=== PATIENT | female | born 1950 | race Caucasian/White ===

== ENCOUNTER 2024-10-24 13:30 | Outpatient (CLI) | payer MEDICARE, SELFPAY ==
--- NOTE | ~2024-10-24 | MR_ITS ---
MRI of the lumbar spine Clinical History: T11 fracture Technique: Axial T2-weighted images, and sagittal T1-weighted, T2-weighted, and T2 fat-sat images wer e acquired. Findings: There is severe T11 compression fracture, which appears to be chronic, without significant marrow edema. There is an acute severe L1 compression fracture with severe loss of height and marrow edema. There is acute mild L2 compression fracture, possibly, particularly at the inferior endplate r egion, again with marrow edema present. No subluxation evident. At L1-L2, there is minimal disc bulge with mild facet arthropathy. No central canal stenosis or defin ite neural foraminal narrowing. At L2-L3, there is minimal disc bulge with moderate to advanced facet arthropathy. There is minimal c entral canal stenosis. Neural foramina are preserved. At L3-L4, there is disc bulge with moderate to advanced facet arthropathy. There is moderate central canal stenosis. There is minimal right neural foraminal narrowing. Left neural foramen preserved. At L4-L5, there is severe degenerative disc narrowing. There is disc bulge with severe facet arthropa thy. There is mild central canal stenosis. There is mild bilateral neural foraminal narrowing. At L5-S1, there is severe degenerative disc narrowing. There is mild disc bulge with moderate to adva nced facet arthropathy. No central canal stenosis. There is severe left neural foraminal narrowing. T here is minimal right neural foraminal narrowing. Paravertebral soft tissues are unremarkable. Impression: Acute compression fractures of L1 and L2, as detailed above. Chronic compression fracture of T11, as detailed above. Moderate to advanced degenerative spondylosis throughout the lumbar spine. Reviewed, dictated and finalized at [facility]. Impression: Acute compression fractures of L1 and L2, as detailed above. Chronic compression fracture of T11, as detailed above. Moderate to advanced degenerative spondylosis throughout the lumbar spine.
--- OUTSIDE RECORDS SUMMARY | 2024-10-24 13:45 | XMS_ITS | Encounter Summary ---
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 Name Role Phone Shalonda Rico MD Primary Care Provider [phone] Reason for Visit * Reason Onset Date Comments Additional Services Or Orders 10/01/2024 Encounter Details Date Type Department Care Team (Late st Contact Info) Description 10/01/2024 Telephone [facility] Family Medicine [address] [place] [address] [place] [phone] Shalonda Rico MD [address] [place] [phone] Additional Services Or Orders Social History Tobacco Use Types Packs/Day Years Used Date Smoking Tobacco: Former Cigarettes Q uit: 2020 Cigars Quit: 2020 Smokeless Tobacco: Never [facility] Utilities Answer Date Recorded In the past 12 months has [employer], gas, oil, or water [employer] threatened to shut off services in your home? No 05/06/2024 Social Connection and Isolation Panel [NHANES] A nswer Date Recorded In a typical week, how many times do you talk on the phone with family, friends, or neighbors? Twice a week 05/06/2024 How often do you get together with friends or re latives? Twice a week 05/06/2024 How often do you attend taoist or mormonism serv ices? Never 05/06/2024 Do you belong to any clubs o r organizations such as taoist groups, unions, fraternal or athletic groups, or school groups? No 05/06/2024 How often do you attend meet ings of the clubs or organizations you belong to? Never 05/06/2024 Are you , , di vorced, , never , or living with a partner? 05/06/2024 AUDIT-C Answer Date Recorded Q1: How often do you have a drink containing alcohol? 4 or more times a week 02/08/2024 Q2: How many drinks containi ng alcohol do you have on a typical day when you are drinking? 1 or 2 Q3: How often do you have si x or more drinks on one occasion? Never 02/08/2024 Overall Financial Resource Strain (CARDIA) Answe r Date Recorded How hard is it for you to pa y for the very basics like food, housing, medical care, and heating? Not hard at all 05/06/2024 PHQ-2 Answer Date Recorded PHQ-2 Total Score (If total score is 3 or more points, staff should administer the PHQ-9) 0 09/15/2023 Hunger Vital Sign Answer Date Recorded Within the past 12 months, y ou worried that your food would run out before you got the money to buy more. Never true 05/06/20 24 Within the past 12 months, t he food you bought just didn't last and you didn't have money to get more. Never true 05/06/2024 PRAPARE - Transportation Answer Date Re corded In the past 12 months, has l ack of transportation kept you from medical appointments or from getting medications? No 04/12 In the past 12 months, has l ack of transportation kept you from meetings, work, or from getting things needed for daily living? No 05/06/2024 Housing Stability Vital Sign Answer Sergio e Recorded In the last 12 months, was t here a time when you were not able to pay the mortgage or rent on time? No 05/06/2024 In the past 12 months, how m any times have you moved where you were living? 0 05/06/2024 At any time in the past 12 m [facility], were you homeless or living in a group home (including now)? No 05/06/2024 Personal Safety Answer Date Recorded Have you ever been in or are you currently in a harmful physical or emotional relationship or is someone making you feel afraid or unsafe? Denies 05/04/2024 Comments Unknown Sex and Gender Information Value Date Recorded Sex Assigned at Not on file Legal Sex Female 8:18 AM CDT Gender Identity Female 05/04/2024 11:00 PM DRAWER IN Sexual Orientation Not on file documented as of this encounter Miscellaneous Notes * Telephone Encounter - Sheree Slater - 10/01/2024 2:00 PM CDT Call Back Caller???s Concern: Patient called back. Relayed message from the nurse. Does message need to be routed? No * Telephone Encounter - Davian Patel - 10/01/2024 11:55 AM CDT Called pt to inform mri order has been faxed and to let us know when scheduled;pt [email or web address]/a.lvm * Telephone Encounter - Savi Esquivel - 10/01/2024 11:52 AM CDT Can you contact patient and make aware order has been faxed and to make office aware once scheduled * Telephone Encounter - Kesha Munguia - 10/01/2024 10:53 AM CDT Medical Question/Miscellaneous Caller???s Concern: Patient would like MRI order faxed over to [facility] Fax number [phone] Please reach out to patient once sent Does message need to be routed? Yes-Action Needed documented in this encounter Plan of Treatment Not on file documented as of this encounter Visit Diagnoses Not on filedocumented in this encounter Care Teams Arc Welding Machine Operator Relationship Specialty Start Date End Date Shalonda Rico MD PCP - General Family Medicine 11/18/23 documented as of this encounter
--- OUTSIDE RECORDS SUMMARY | 2024-10-24 13:45 | XMS_ITS | Referral Summary ---
Author Organization [facility] Address [address] [place] [address] Care Team Providers Care Cross Tie Maker Name Role Phone Shalonda Rico MD Primary Care Provider [phone] Encounters Date Type Department Care Team Description 10/12/[address] [place] [address] Shalonda Rico MD Medical Question/Miscellaneous 10/01/[address] [place] [address] Shalonda Rico MD Additional Services Or Orders 09/30/2024 3:30 PM CDT Office Visit [address] [place] [address] Dora Lorenzana NP Compression fracture of T11 vertebra, initial encounter (HCC) (Primary Dx); Closed displaced intertrochanteric fracture of right femur with routine healing, subsequent encounter; Hypertension, essential 09/27/[address] [place] [address] Shalonda Rico MD Additional Services Or Orders; Symptom Based Call 09/27/2024 1:45 PM CDT Office Visit [facility] Pulmonology [address] [place] [address] [address] [place] [address] Andree Hunt MD Chronic obstructive pulmonary disease, unspecified COPD type (HCC) (Primary Dx); Chronic rhinitis; Cigarette nicotine dependence in remission; Pulmonary nodules 09/22/[address] [place] [address] Shalonda Rico MD Med Refill 09/14/[address] [place] [address] Shalonda Rico MD Referral Request 09/14/2024 4:47 PM CDT - 09/14/2024 11:59 PM CDT Hospital Encounter [facility] [address] [place] [address] Pulmonary nodules Discharge Disposition: Discharge to home or self care 08/11/[address] [address] Shalonda Rico MD Ortho Referral- 2nd opinion- Declined 08/05/2024 3:00 PM CDT Office Visit [address] [id number] Dora Lorenzana NP Bursitis of right elbow, unspecified bursa (Primary Dx); Hypertension, essential; Vitamin D deficiency; Chronic obstructive pulmonary disease, unspecified COPD type (HCC); Mixed hyperlipidemia; Hyponatremia; Generalized anxiety disorder 08/04/2024 11:14 AM CDT - 08/04/2024 11:59 PM CDT Hospital Encounter [facility] [address] [place] [address] Olecranon bursitis of right elbow Discharge Disposition: Discharge to home or self care 08/04/2024 11:15 AM CDT Office Visit [facility] Hand Surgery [address] [place] [address] [address] [place] [address] Herminio Bruce MD Olecranon bursitis of right elbow (Primary Dx) 07/26/2024 Telephone [facility] [address] [facility] [address] [place] [address] Herminio Bruce MD 07/26/2024 Telephone [facility] Hand [facility] [address] [place] [address] Herminio Bruce MD from Last 3 Months Allergies No known active allergies Medications albuterol HFA (PROVENTIL HFA,VENTOLIN HFA,PROAIR HFA) 90 mcg/actuation inhalerIndicat ions:Chronic obstructive pulmonary disease, unspecified COPD type (HCC) INHALE 2 PUFFS EVERY 4 HOURS NEEDED FOR WHEEZING OR SHORTNESS OF BREATH 6.7 each 3 01/28/20 23 Active ergocalciferol (VITAMIN D) 50,000 unit capsuleIndicat ions:Vitamin D deficiency Take 1 capsule (50,000 Units total) by mouth once a week 12 capsule 2 02/13/20 24 Active rosuvastatin (CRESTOR) 5 mg tablet Take 1 tablet (5 mg total) by mouth once a week 4 tablet 3 05/11/20 24 Active acetaminophen (TYLENOL) 325 mg tabletIndicati ons:Arthritic Pain,Fever,Hea dache Disorder,Myalg ia,Pain Take 2 tablets (650 mg total) by mouth 3 (three) times a day 30 tablet 1 05/11/20 24 Active bisacodyl EC (DULCOLAX EC) 5 mg EC tabletIndicati ons:constipati on Take 2 tablets (10 mg total) by mouth daily as needed for constipation 05/11/20 24 Active cyanocobalamin (Vitamin B-12) 1,000 mcg tabletIndicati ons:B12 deficiency Take 1 tablet (1,000 mcg total) by mouth daily 05/11/20 24 Active mineral oil (FLEET MINERAL OIL) enemaIndicatio ns:constipatio n Insert 1 enema (133 mL total) into the rectum every third day as needed for constipation (Constipation) 05/11/20 24 Active mirtazapine (REMERON) 15 mg tabletIndicati ons:Anxiety and depression Take 1 tablet (15 mg total) by mouth nightly 30 tablet 3 05/11/20 24 Active Additional Information Patient not taking.Reported on 09/30/2024 ibandronate (BONIVA) 150 mg tablet PLEASE SEE ATTACHED FOR DETAILED DIRECTIONS 07/02/19 25 Active metoprolol XL (TOPROL-XL) 25 mg extended release tabletIndicati ons:Hypertensi on, essential Take 2 tablets (50 mg total) by mouth daily 180 tablet 3 07/08/19 25 026 Active ALPRAZolam (XANAX) 0.5 mg tabletIndicati ons:Generalize d anxiety disorder Take 1 tablet (0.5 mg total) by mouth nightly as needed for anxiety 30 tablet 08/06/19 25 Active Trelegy Ellipta 100-62.5-25 mcg inhaler INHALE 1 PUFF DAILY RINSE MOUTH WITH WATER AFTER USE, DON'T SWALLOW. APPOINTMENT NEEDED 60 each 5 09/22/19 25 Active lisinopriL (PRINIVIL,ZEST RIL) 10 mg tablet TAKE 1 TABLET BY MOUTH EVERY DAY 100 tablet 1 09/26/19 25 Active lisinopriL (PRINIVIL,ZEST RIL) 10 mg tablet TAKE 1 TABLET BY MOUTH EVERY DAY 90 tablet 07/05/19 25 025 Discontinued HYDROcodone-ac etaminophen (NORCO) 5-325 mg per tabletIndicati ons:Pain Take 1 tablet by mouth every 6 (six) hours as needed for pain for up to 7 days 28 tablet 10/01/19 25 025 Active Problems Problem Noted Date Diagnosed Date Olecranon bursitis of right elbow 08/04/2024 Transition of care 06/03/2024 Assessment & Plan (06/03/2024 12:07 PM JEEP DRIVER): Patient is status post right femur fracture Follow up with Dr. Ojeda regarding right femur fracture and physical therapy. Acute postoperative pain of right hip 05/08/2024 Acute postoperative anemia due to expected blood loss 05/08/2024 Nocturnal hypoxemia 05/08/2024 Acute renal failure 05/08/2024 Moderate protein-calorie malnutrition 05/06/2024 Closed displaced intertrochanteric fracture of r ight femur 05/05/2024 Assessment & Plan (06/03/2024 12:07 PM JEEP DRIVER): Patient to continue medications as before hospitalization. Patient to continue with physical therapy in home. She states they are coming twice a week for 3 weeks. She has 2 weeks left. Patient states she is having more difficulty with constipation. Patient is already taking bisacodyl, MiraLax, occasional enemas, and fibrous foods. Patient does have samples at [facility] at home that she is willing to try. Patient states she is still having some pain and would like a refill on the oxycodone. Refill sent. Patient to follow up with Dr. Ojeda for the surgery. Office number given to patient during appointment. Vitamin D deficiency 02/13/2024 Assessment & Plan (08/05/2024 4:01 PM CDT): Chronic Uncontrolled Vitamin-D was drawn in the hospital and it was at 8. New labs ordered advised patient to take supplements. Compression fracture of T11 vertebra, initial en counter 02/08/2024 Other constipation 02/08/2024 Heavy alcohol use 02/08/2024 Hyponatremia 02/08/2024 Encounter for Medicare annual wellness exam 10/2023 Age-related osteoporosis wit hout current pathological fracture 06/16/2023 Assessment & Plan (06/16/2023 2:08 PM JEEP DRIVER): New Start caclcium and boniva Claudication of both lower extremities Bilateral cold feet 06/16/2023 Vertigo 02/20/2023 Assessment & Plan (03/21/2023 6:10 AM JEEP DRIVER): New Order meclizine Order PT Order CT head, echo, carotid ultrasounds Neck pain 02/20/2023 Assessment & Plan (03/21/2023 6:10 AM JEEP DRIVER): New Order cervical xray Order PT Well adult exam 02/20/2023 Chronic idiopathic constipation 10/03/2022 Assessment & Plan (10/03/2022 2:04 PM CDT): Chronic constipation, worsening since February of 2022. Bentyl and stool softeners seem to help. -high-fiber diet -we will give [employer] samples and prescribe [employer] 145 mcg p.o. daily -continue stool softeners; if [employer] not covered recommend MiraLax OTC daily Renal cyst, right 08/21/2022 Assessment & Plan (08/30/2022 1:36 AM CDT): Order MRI right renal Chronic bilateral low back pain without sciatica 08/21/2022 Assessment & Plan (08/30/2022 1:36 AM CDT): Chronic Refer to chiropractor Mixed hyperlipidemia 06/20/2022 Assessment & Plan (06/16/2023 2:09 PM JEEP DRIVER): Chronic Uncontrolled Start crestro 5mg 2 days/week Goal: TC<200, LDL<100, TG<150 Assessment & Plan (03/21/2023 6:09 AM JEEP DRIVER): Chronic stable ffollow low cholesterol diet Goal: TC<200, LDL<100, TG<150 Assessment & Plan (06/28/2022 3:27 AM JEEP DRIVER): Chronic ffollow low cholesterol diet Goal: TC<200, LDL<100, TG<150 Pulmonary nodules 06/20/2022 Assessment & Plan (06/28/2022 3:29 AM JEEP DRIVER): Chronic Follow with ct chest Post-menopausal 06/20/2022 Periumbilical abdominal pain 06/20/2022 Assessment & Plan (06/28/2022 3:28 AM JEEP DRIVER): New Order labs Order CT abd/pelvis Refer to GI Epigastric abdominal pain 06/20/2022 Assessment & Plan (10/03/2022 2:02 PM CDT): Epigastric discomfort after meals, associated with bloating. Denies any nausea or vomiting. Labs ordered by PCP June 2022 with normal LFTs, normal lipase, normal CBC, and normal TSH. CT of the abdomen and pelvis with contrast August 2022 with no acute abnormalities, uncomplicated colonic diverticulosis, indeterminate right renal lesion, tiny hypodensities in the liver too small to characterize but likely cysts, and emphysema with pulmonary nodules. -avoid NSAIDS -noted plans for MRI by PCP to evaluate kidney lesion -schedule EGD -The risks (risks of bleeding, infection, perforation requiring surgery, missed polyps/cancer, dental injury, aspiration pneumonia, anesthesia complications such as drug reaction and cardiopulmonary complications including rare chance of ), benefits, and alternatives of the planned procedure were explained to the patient who understands and consents to having procedure done. Assessment & Plan (06/28/2022 3:28 AM JEEP DRIVER): New Order labs Order CT abd/pelvis Refer to GI Abdominal bloating 06/20/2022 Assessment & Plan (10/03/2022 2:02 PM CDT): See above Assessment & Plan (08/30/2022 1:35 AM CDT): Chronic Likely IBS Will start bentyl Assessment & Plan (06/28/2022 3:28 AM JEEP DRIVER): New Order labs Order CT abd/pelvis Refer to GI Change in bowel habits 06/20/2022 Assessment & Plan (10/03/2022 2:04 PM CDT): Chronic constipation, worsening since February 2022. Patient went to urgent care and told she had an impaction, improved with enemas. Last colonoscopy by Dr. Cheng in April of 2018 incomplete to the hepatic flexure, left-sided diverticulosis. -discuss colonoscopy for further evaluation including alternatives such as CT colonography or barium enema; patient states she had a bad experience with the last colonoscopy and does not desire another colonoscopy or alternatives understanding the risk of missed colon cancer Assessment & Plan (06/28/2022 3:28 AM JEEP DRIVER): New Order labs Order CT abd/pelvis Refer to GI Hypertension, essential 06/20/2022 Assessment & Plan (08/05/2024 4:00 PM CDT): Chronic Stable Tolerating metoprolol 25 mg p.o. and lisinopril 10 mg p.o. both in the late afternoon. Goal: SBP<140, DBP<90 Follow up in September Assessment & Plan (07/08/2024 3:45 PM JEEP DRIVER): Chronic Not stable at home during patient's check Advised patient to take metoprolol to 25 mg daily and take in the morning and continue with the lisinopril 10 mg daily but take at bedtime. Patient to record blood pressure readings b.i.d. for the next 4 weeks Follow up in 4 weeks. Goal: SBP<140, DBP<90 Assessment & Plan (03/25/2024 2:47 PM JEEP DRIVER): Chronic Not stable Currently taking metoprolol 50 mg daily and lisinopril 10 mg daily. Advised patient to decrease metoprolol to 25 mg daily and take in the morning and continue with the lisinopril 10 mg daily but take at bedtime. Patient to record blood pressure readings b.i.d. for the next 2 weeks Follow up in 2 weeks. Goal: SBP<140, DBP<90 Assessment & Plan (03/21/2023 6:10 AM JEEP DRIVER): Chronic Is stable Cont lopressor, lisinopril Goal: SBP<140, DBP<90 Assessment & Plan (06/28/2022 3:28 AM JEEP DRIVER): Chronic Stable Cont lopressor, lisinopril Goal: SBP<140, DBP<90 Anxiety 05/08/2017 Overview (02/08/2024): Description: stable on meds Chronic obstructive pulmonary disease 07/18/2015 Overview (02/08/2024): Followed by pulmonary Immunizations Immunization Administration Dates Next Due Influenza, Quadrivalent, Hig h Dose, Preservative Free, Intrr 02/20/2023 Influenza, Quadrivalent, Spl it, Preservative Free, Intramuscular 02/22/2021 Influenza, Trivalent, High D ose, Split, Preservative Free, Intramuscular 02/10/2024,04/29/2019 Influenza, Trivalent, IM (MDV) 02/09/2015 Influenza, Unspecified 02/09/2022,2020,04/29/2019,04/23,04/14/2018,03/19/2018,05/08/2017 ,09/29/2015,09/06/2015,08/16/2015 Savi (J&J) SARS-CoV-2 Vaccination 07/23/2020 Pneumococcal Conjugate PCV 13 07/19/2015 Pneumococcal Polysaccharide PPV23 03/19/2018,,1950 Tdap 05/12/2013,10/26/2007 ZOSTER LIVE 09/29/2015,09/06/2015,08/16/2015 Social History Tobacco Use Types Packs/Day Years Used Date Smoking Tobacco: Former Cigarettes Q uit: 2020 Cigars Quit: 2020 Smokeless Tobacco: Never [facility] Utilities Answer Date Recorded In the past 12 months has th [employer] electric, gas, oil, or water company threatened to shut off services in your home? No 05/06/2024 Social Connection and Isolation Panel [NHANES] A nswer Date Recorded In a typical week, how many times do you talk on the phone with family, friends, or neighbors? Twice a week 05/06/2024 How often do you get together with friends or re latives? Twice a week 05/06/2024 How often do you attend christianity or restorationist serv ices? Never 05/06/2024 Do you belong to any clubs o r organizations such as christianity groups, unions, fraternal or athletic groups, or [...] any time in the past 12 m [facility], were you homeless or living in a care home (including now)? No 05/06/2024 Personal Safety [...] CDT Gender Identity Female 05/04/2024 11:00 PM JEEP DRIVER Sexual Orientation Not on file Last Filed Vital Signs Vital Sign Reading Time Taken Comments Blood Pressure 88/46 09/30/2024 3:19 PM CDT Pulse 90 09/30/2024 3:19 PM CDT Temperature 36.1 C (97 F) 09/30/2024 3:19 PM CDT Respiratory Rate 16 09/27/2024 1:36 PM CDT Oxygen Saturation 95% 09/30/2024 3:19 PM CDT Inhaled Oxygen Concentration - - Weight 58.5 kg (129 lb) 09/30/2024 3:19 PM CDT Height 172.7 cm (5' 8) 09/30/2024 3:19 PM CDT Body Mass Index 19.61 09/30/2024 3:19 PM CDT Plan of Treatment Not on file Medical Devices Implanted Type Area Setter Off Device Identifier Shelf Expiration Date Model / Serial / Lot [employer]/Ort ho Classic Chs 80mm 38.1mm 3 Hole Compression Hip 130d Standard [id number] - [id number] Implanted:Qty: 1 on 05/05/2024 by Mohsen Ojeda MD at [facility] Right: Hip [employer]/O rtho [id number] 09/16/2032 [id number] / / [id number] [employer]/Ort ho Ambi Chs 12.7mm 9mm 95mm 21mm Standard Lag Hip Screw Bone [id number] - [id number] Implanted:Qty: 1 on 05/05/2024 by Mohsen Ojeda MD at [facility] Right: Hip [employer]/O rtho [id number] 03/03/2028 [id number] / / [id number] [employer]/Rich[employer]/Ort ho Ambi Classic 4.5mm 8mm 36mm Self Tap Hip Cortical Screw Bone [id number] - [id number] Implanted:Qty: 1 on 05/05/2024 by Mohsen Ojeda MD at [facility] Right: Hip [employer]/O rtho [id number] / / [employer]/Ort ho Screw Bone Cortical St Full Thread Ambi Classic 4.5x38mm Ss [id number] - [id number] Implanted:Qty: 1 on 05/05/2024 by Mohsen Ojeda MD at [facility] Right: Hip [employer]/O rtho [id number] / / [employer]Rich[employer]/Ort ho 4.5mm 8mm 40mm Self Tap Hip Cortical Screw Bone [id number] - [id number] Implanted:Qty: 1 on 05/05/2024 by Mohsen Ojeda MD at [facility] Right: Hip [employer]/O rtho [id number] / / [employer]Rich[employer]/Ort ho Screw Bone Locking Cannulated Supracondylar Chs 3.5x19mm Stainless Steel [id number] - [id number] Implanted:Qty: 1 on 05/05/2024 by Mohsen Ojeda MD at [facility] Right: Hip [employer]/O rtho [id number] 09/24/2026 [id number] / / [id number] Procedures Procedure Name Priority Date/Time Associated Diagnosis Comments CT CHEST WO CONTRAST F/U LUNG SCREEN PROTOCOL Schedule Routine, Read Routine (OP Routine) 09/14/2024 5:03 PM CDT Pulmonary nodules XR ELBOW RIGHT 3 OR MORE VIEWS Schedule Routine, Read Routine (OP Routine) 08/04/2024 11:18 AM CDT Olecranon bursitis of right elbow DEXA AXIAL SKELETON BONE DENSITY 1 OR MORE SITES Schedule Routine, Read Routine (OP Routine) 12/31/2022 1:01 PM CDT Post-menopausal COLONOSCOPY Routine 04/28/2018 from Last 3 Months or Most Recently Relevant to Health Maintenance Results * CT Chest WO Contrast F/U Lung Screen Protocol (09/14/2024 5:03 PM CDT) Anatomical Region Laterality Modality Chest N/A Computed Tomogra phy 09/24/2024 7:44 AM CDT Narrative 09/24/2024 8:17 AM CDT EXAM DESCRIPTION: CT CHEST WO CONTRAST F/U LUNG SCREEN PROTOCOL REASON FOR STUDY: Screening CT of the chest in a former smoker with a 30 pack year smoking history. Additional history: Category 0 examination on 01/28/2024. TECHNIQUE: Low dose CT scan of the chest was performed without intravenous contrast using helical scanning technique. The exam extends from the lung apices through the lung bases. Automatic exposure control was used as a dose optimization technique. NOTE: This study was performed for the specific purposes of lung cancer screening and is not an alternative to diagnostic chest CT. RADIATION DOSE: CT dose index volume (CTDIvol) = 0.82 mGy COMPARISON: 01/28/2024 FINDINGS: SMOKING RELATED LUNG DISEASE: Moderate emphysema LUNG NODULES: New 4 mm anterior right upper lobe nodule (47). Stable 4 mm pleural right middle lobe nodule (160). Stable 8 mm lateral right lower lobe nodule (262). Improvement in the now part solid nodule within the superior segment of the right lower lobe which measures approximately 1.6 x 1.0 cm, previously approximately 2.5 x 1.4 cm (126). Slight waxing and waning appearance of the small pleural consolidation within the left lung base with largest component measuring approximately 11 mm (213). A 5 x 3 mm nodule within the lateral left lower lobe, previously measured approximately 6 x 4 mm on the prior (129). Stable 4 mm left lower lobe nodule (112). Other stable nodules are noted. OTHER: Mild peripheral ground-glass within the lateral basilar right lower lobe likely represents scarring. No pleural effusion or pneumothorax. No mediastinal or hilar lymphadenopathy. The heart is normal in size. Moderate coronary calcification is present. The aorta is nonaneurysmal. No axillary lymphadenopathy. No chest wall mass is seen. Images of the upper abdomen demonstrate a cyst within the left kidney. Bone windows demonstrate progression of a moderate L1 compression fracture compared to 02/08/[address] Slight progression of a severe T11 compression fracture as well. IMPRESSION: 1. New 4 mm right upper lobe nodule. Improvement in now a 1.6 cm part solid right lower lobe nodule. Slight waxing and waning appearance of the small pleural consolidation within the left lung base compared to 01/28/2024. Continued short-term 3 month follow-up is recommended. Lung-RADS category 4A: Suspicious. Recommendation: Low dose CT of chest in 3 months. THIS IS AN ELECTRONICALLY VERIFIED FINAL REPORT 09/24/2024 8:17 AM - Electronically signed by Latrell Rowley M.D. AG T: Report ID: [id number] Reading Location: [place] [address] Procedure Note Latrell Rowley MD - 09/24/2024 EXAM DESCRIPTION: CT CHEST WO CONTRAST F/U LUNG SCREEN PROTOCOL REASON FOR STUDY: Screening CT of the chest in a former smoker with a30 pack year smoking history. Additional history: Category 0 examination on 01/28/2024. TECHNIQUE: Low dose CT scan of the chest was performed without intravenous contrast using helical scanning technique. The exam extends from the lung apices through the lung bases. Automatic exposure control was used as adose optimization technique. NOTE: This study was performed for the specific purposes of lung cancer screening and is not an alternative to diagnostic chest CT. RADIATION DOSE: CT dose index volume (CTDIvol) = 0.82 mGy COMPARISON: 01/28/2024 FINDINGS: SMOKING RELATED LUNG DISEASE: Moderate emphysema LUNG NODULES: New 4 mm anterior right upper lobe nodule (47). Stable 4mm pleural right middle lobe nodule (160). Stable 8 mm lateral right lowerlobe nodule (262). Improvement in the now part solid nodule within thesuperior segment of the right lower lobe which measures approximately 1.6 x 1.0 cm, previously approximately 2.5 x 1.4 cm (126). Slight waxing and waning appearance of the small pleural consolidation within the left lung basewith largest component measuring approximately 11 mm (213). A 5 x 3 mm nodule within the lateral left lower lobe, previously measured approximately 6 x4 mm on the prior (129). Stable 4 mm left lower lobe nodule (112). Otherstable nodules are noted. OTHER: Mild peripheral ground-glass within the lateral basilar rightlower lobe likely represents scarring. No pleural effusion or pneumothorax. No mediastinal or hilar lymphadenopathy. The heart is normal in size.Moderate coronary calcification is present. The aorta is nonaneurysmal. Noaxillary lymphadenopathy. No chest wall mass is seen. Images of the upper abdomen demonstrate a cyst within the left kidney. Bone windows demonstrate progression of a moderate L1 compression fracture compared to 02/08/[address] Slight progression of a severe T11 compression fracture as well. IMPRESSION: 1. New 4 mm right upper lobe nodule. Improvement in now a 1.6 cm partsolid right lower lobe nodule. Slight waxing and waning appearance of the small pleural consolidation within the left lung base compared to 01/28/2024. Continued short-term 3 month follow-up is recommended. Lung-RADS category 4A: Suspicious. Recommendation: Low dose CT of chest in 3 months. THIS IS AN ELECTRONICALLY VERIFIED FINAL REPORT 09/24/2024 8:17 AM - Electronically signed by Latrell Rowley M.D. AG T: Report ID: [id number] Reading Location: [id number] Andree Hunt MD IMG CT PROCEDURES Final Resul t * XR Elbow Right 3 or More Views (08/04/2024 11:18 AM CDT) Anatomical Region Laterality Modality Upper Extremities, Elbow Right Compute d Radiography 08/18/2024 6:46 AM CDT Narrative 08/18/2024 6:47 AM CDT EXAM DESCRIPTION: XR ELBOW RIGHT 3 OR MORE VIEWS REASON FOR STUDY: Right elbow pain TECHNIQUE: AP lateral and oblique radiographic view(s) of the right elbow . COMPARISON: May 04, 2024 FINDINGS: AP lateral and oblique x-rays right elbow show soft tissue swelling at the olecranon bursa with calcification associated with the olecranon IMPRESSION: See findings THIS IS AN ELECTRONICALLY VERIFIED FINAL REPORT 08/18/2024 6:47 AM - Electronically signed by Herminio Bruce TL T: Report ID: [id number] Reading Location: [place] [address] Procedure Note Herminio Bruce MD - 08/18/2024 EXAM DESCRIPTION: XR ELBOW RIGHT 3 OR MORE VIEWS REASON FOR STUDY: Right elbow pain TECHNIQUE: AP lateral and oblique radiographic view(s) of the rightelbow . COMPARISON: May 04, 2024 FINDINGS: AP lateral and oblique x-rays right elbow show soft tissueswelling at the olecranon bursa with calcification associated with the olecranon IMPRESSION: See findings THIS IS AN ELECTRONICALLY VERIFIED FINAL REPORT 08/18/2024 6:47 AM - Electronically signed by Herminio Bruce TL T: Report ID: [id number] Reading Location[facility] Herminio Bruce MD IMG XR PROCEDURES Final Result * Dexa Axial Skeleton Bone Density 1 or 2 Site (12/31/2022 1:01 PM CDT) Anatomical Region Laterality Modality Body N/A Mammography 01/01/2023 5:24 PM CDT Narrative 01/01/2023 5:25 PM CDT EXAM DESCRIPTION: DEXA AXIAL SKELETON BONE DENSITY 1 OR MORE SITES REASON FOR STUDY: 72 y/o year old F with given history of: post menopausal Setter Off/Model: MediSens A (S/N [id number]) CLINICAL INFORMATION: Current height: 66.4 inches Maximum height: 70 inches Weight: 157 pounds Risk factors: Postmenopausal, cancer, asthma or emphysema COMPARISON: None available FINDINGS: AP LUMBAR SPINE L1-L4: Total BMD is 0.939 g/cm2 T-score is -1.0 LEFT HIP: Total BMD is 0.610 g/cm2 T-score is -2.7 Femoral neck BMD is 0.501 g/cm2 T-score is -3.1 FRAX: FRAX not reported due to T-scores of hip, femoral neck and/or spine being at or below -2.5 (Osteoporosis). IMPRESSION: Osteoporosis. REFERENCE: Bone mineral density: Normal (T-score above or = -1.0) Low bone mass (T-score between -1.0 and -2.5) replaces the previously used term osteopenia Osteoporosis (T-score = or below -2.5) Medical evaluation for secondary causes of low bone mineral density may be appropriate. FRAX is a World Health Organization validated fracture risk assessment tool that calculates a person's 10 year probability of a major osteoporosis related fracture and hip fracture. According to the National Osteoporosis Foundation guidelines, postmenopausal women and men age 50 or older with low bone mass and a 10 year probability of a major osteoporosis related fracture = or greater than 20% or a 10 year probability of a hip fracture = or greater than 3% should be considered for treatment. For further information, including treatment recommendations, please refer to the 2019 ISCD Official Positions (http://www.iscd.org) and the NOF's Clinician's Guide to Prevention and Treatment of Osteoporosis (http://www.nof.org/professionals/clinical-guidelines) THIS IS AN ELECTRONICALLY VERIFIED FINAL REPORT 01/01/2023 5:25 PM - Electronically signed by Mian Florentino M.D. MF: [id number] Report ID: [id number] Reading Location: [id number] Procedure Note Mian Florentino MD - 01/01/2023 EXAM DESCRIPTION: DEXA AXIAL SKELETON BONE DENSITY 1 OR MORE SITES REASON FOR STUDY: 72 y/o year old F with given history of: post menopausal Setter Off/Model: MediSens A (S/N [id number]) CLINICAL INFORMATION: Current height: 66.4 inches Maximum height: 70 inches Weight: 157 pounds Risk factors: Postmenopausal, cancer, asthma or emphysema COMPARISON: None available FINDINGS: AP LUMBAR SPINE L1-L4: Total BMD is 0.939 g/cm2 T-score is -1.0 LEFT HIP: Total BMD is 0.610 g/cm2 T-score is -2.7 Femoral neck BMD is 0.501 g/cm2 T-score is -3.1 FRAX: FRAX not reported due to T-scores of hip, femoral neck and/or spine beingat or below -2.5 (Osteoporosis). IMPRESSION: Osteoporosis. REFERENCE: Bone mineral density: Normal (T-score above or = -1.0) Low bone mass (T-score between -1.0 and -2.5) replaces thepreviously used term osteopenia Osteoporosis (T-score = or below -2.5) Medical evaluation for secondary causes of low bone mineral density may be appropriate. FRAX is a World Health Organization validated fracture risk assessmenttool that calculates a person's 10 year probability of a major osteoporosisrelated fracture and hip fracture. According to the National OsteoporosisFoundation guidelines, postmenopausal women and men age 50 or older with low bonemass and a 10 year probability of a major osteoporosis related fracture = or greater than 20% or a 10 year probability of a hip fracture = or greaterthan 3% should be considered for treatment. For further information, including treatment recommendations, please referto the 2019 ISCD Official Positions (http://www.iscd.org) and the NOF's Clinician's Guide to Prevention and Treatment of Osteoporosis (http://www.nof.org/professionals/clinical-guidelines) THIS IS AN ELECTRONICALLY VERIFIED FINAL REPORT 01/01/2023 5:25 PM - Electronically signed by Mian Florentino M.D. MF: [id number] Report ID: [id number] Reading Location: [place] [address] Shalonda Rico MD IMG DXA PROCEDURES Final Result * Colonoscopy (04/28/2018) Anatomical Region Laterality Modality Other Historical Provider ENDOSCOPY PROCEDURES Betsy l Result from Last 3 Months or Most Recently Relevant to Health Maintenance Insurance [employer] MEDICARE GOLD [facility] TNA MEDICARE GOLD Advance Directives For more information, please contact: [phone] * LIMITED - No CPR (Latest Code Status on File) Date Activated Date Inactivated Comments 05/08/2024 5:01 PM 05/11/2024 5:26 PM Question Answer Comments Provide aggressive medical m anagement before a full cardiopulmonary arrest occurs. Use antibiotics, IV Fluids, and medical treatment unless specifically selected below: No intubationNo cardioversionNo internal / external pacemakerNo vasopressors Discussed with the following attending physician: * Full Code Date Activated Date Inactivated Comments 05/05/2024 2:51 AM 05/08/2024 5:01 PM * Full Code Date Activated Date Inactivated Comments 02/08/2024 9:25 PM 02/11/2024 6:32 PM Care Teams Cross Tie Maker Relationship Specialty Start Date End Date Shalonda Rico MD PCP - General Family Medicine 11/18/23
--- OUTSIDE RECORDS SUMMARY | 2024-10-24 13:45 | XMS_ITS | Encounter Summary ---
Author Organization [facility] Healthcare Address [address] [place] [address] Care Team Providers Care Pantograph Machine Operator Name Role Phone Shalonda Rico MD Primary Care Provider [phone] Encounter Details Date Type Department Care Team (Late st Contact Info) Description 03/18/2024 Orders Only [facility] Health Information Management [address] [place] [id number] Scanning, Provider Social History Tobacco Use Types Packs/Day Years Used Date Smoking Tobacco: Former Cigarettes Q uit: 2020 Cigars Quit: 2020 Smokeless Tobacco: Never [facility] Utilities Answer Date Recorded In the past 12 months has th e electric, gas, oil, or water company threatened to shut off services in your home? No 02/09/2024 Social Connection and Isolation Panel [NHANES] A nswer Date Recorded In a typical week, how many times do you talk on the phone with family, friends, or neighbors? Twice a week 02/09/2024 How often do you get together with friends or re latives? Never 02/09/2024 How often do you attend jehovah's witness or alevism serv ices? Never 02/09/2024 Do you belong to any clubs o r organizations such as jehovah's witness groups, unions, fraternal or athletic groups, or school groups? No 02/09/2024 How often do you attend meet ings of the clubs or organizations you belong to? Never 02/09/2024 Are you , , di vorced, , never , or living with a partner? 02/09/2024 AUDIT-C Answer Date Recorded Q1: How often [...] care, and heating? Not hard at all 02/09/2024 PHQ-2 Answer Date Recorded PHQ-2 Total Score (If total score is 3 or more points, staff should administer the PHQ-9) 0 09/15/2023 Hunger Vital Sign Answer Date Recorded Within the past 12 months, y ou worried that your food would run out before you got the money to buy more. Never true 02/09/20 24 Within the past 12 months, t he food you bought just didn't last and you didn't have money to get more. Never true 02/09/2024 PRAPARE - Transportation Answer Date Re corded In the past 12 months, has l ack of transportation kept you from medical appointments or from getting medications? No 01/12 In the past 12 months, has l ack of transportation kept you from meetings, work, or from getting things needed for daily living? No 02/09/2024 Housing Stability Vital Sign Answer Sergio e Recorded In the last 12 months, was t here a time when you were not able to pay the mortgage or rent on time? No 02/09/2024 In the past 12 months, how m any times have you moved where you were living? 0 02/09/2024 At any time in the past 12 m [facility], were you homeless or living in a custodial (including now)? No 02/09/2024 Personal Safety Answer Date Recorded Have you ever been in or are you currently in a harmful physical or emotional relationship or is someone making you feel afraid or unsafe? Denies 02/08/2024 Comments Unknown Sex and Gender Information Value Date Recorded Sex Assigned at Not on file Legal Sex Female 8:18 AM CDT Gender Identity Female 05/04/2024 11:00 PM RADIO DIVISION CAPTAIN Sexual Orientation Not on file documented as of this encounter Plan of Treatment Not on file documented as of this encounter Procedures Procedure Name Priority Date/Time Associated Diagnosis Comments SCAN - LABS 03/18/2024 documented in this encounter Results * SCAN - LABS (03/18/2024) us Provider Scanning Final Result documented in this encounter Visit Diagnoses Not on filedocumented in this encounter Care Teams Pantograph Machine Operator Relationship Specialty Start Date End Date Shalonda Rico MD PCP - General Family Medicine 11/18/23 documented as of this encounter
--- OUTSIDE RECORDS SUMMARY | 2024-10-24 13:45 | XMS_ITS | Encounter Summary ---
Author Organization [facility] Healthcare Address [address] [place] [address] Care Team Providers Care Steam Frame Operator Name Role Phone Shalonda Rico MD Primary Care Provider [phone] Reason for Visit * Reason Onset Date Comments Medical Question/Miscellaneous 10/12/2024 Encounter Details Date Type Department Care Team (Late st Contact Info) Description 10/12/2024 Telephone [facility] Medical Group Family Medicine [address] [facility] [address] [place] [phone] Shalonda Rico MD [address] [place] [id number] Medical Question/Miscellaneous Social History Tobacco Use Types Packs/Day Years Used Date Smoking Tobacco: Former Cigarettes Q uit: 2020 Cigars Quit: 2020 Smokeless Tobacco: Never [facility] Utilities Answer Date Recorded In the past 12 months has [employer], gas, oil, or water [employer] threatened to shut off services in your home? No 05/06/2024 Social Connection and Isolation Panel [NHANES] A nswer Date Recorded In a typical week, how many times do you talk on the phone with family, friends, or neighbors? Twice a week 05/06/2024 How often do you get together with friends or re latives? Twice a week 05/06/2024 How often do you attend scientology or church serv ices? Never 05/06/2024 Do you belong to any clubs o r organizations such as scientology groups, unions, fraternal or athletic groups, or [...] any time in the past 12 m [facility], were you homeless or living in [...] CDT Gender Identity Female 05/04/2024 11:00 PM ELECTRIC WIRER Sexual Orientation Not on file documented as of this encounter Miscellaneous Notes * Telephone Encounter - Savi Esquivel - 10/13/2024 10:09 AM CDT Aero Glasst message sent to patient for clarification see message from 10/01/24 * Telephone Encounter - Jennifer Mustafa - 10/12/2024 2:26 PM CDT Medical Question/Miscellaneous Caller???s Concern: patient Robles would like to change where the referral from 09.30 is taking place since cannot get a soon appointment for Compression fracture of T11 vertebra. She would like to [facility] instead. Can the referral be updated to the new location? Her [place] appointment is on 10.24.24 Thanks Does message need to be routed? Yes-Action Needed documented in this encounter Plan of Treatment Not on file documented as of this encounter Visit Diagnoses Not on filedocumented in this encounter Care Teams Steam Frame Operator Relationship Specialty Start Date End Date Shalonda Rico MD PCP - General Family Medicine 11/18/23 documented as of this encounter
--- OUTSIDE RECORDS SUMMARY | 2024-10-24 13:46 | XMS_ITS | Clinical Summary ---
Author Organization [facility] at the [facility] Office Center Address [address] [place] [address] Care Team Providers Care Comic Illustrator Name Role Phone Shalonda Rico MD Primary Care Provider [phone] Allergies No known active allergies Medications albuterol [...] 06/03/2024 Assessment & Plan (06/03/2024 12:07 PM CHRONIC CARE NURSE): Patient is status post right femur fracture Follow up with Dr. Ojeda regarding right femur fracture and physical therapy. Acute postoperative pain of right hip 05/08/2024 Acute postoperative anemia due to expected blood loss 05/08/2024 Nocturnal hypoxemia 05/08/2024 Acute renal failure 05/08/2024 Moderate protein-calorie malnutrition 05/06/2024 Closed displaced intertrochanteric fracture of r ight femur 05/05/2024 Assessment & Plan (06/03/2024 12:07 PM CHRONIC CARE NURSE): Patient to continue medications as before hospitalization. [...] 06/16/2023 Assessment & Plan (06/16/2023 2:08 PM CHRONIC CARE NURSE): New Start caclcium and boniva Claudication of both lower extremities Bilateral cold feet 06/16/2023 Vertigo 02/20/2023 Assessment & Plan (03/21/2023 6:10 AM CHRONIC CARE NURSE): New Order meclizine Order PT Order CT head, echo, carotid ultrasounds Neck pain 02/20/2023 Assessment & Plan (03/21/2023 6:10 AM CHRONIC CARE NURSE): New Order cervical xray Order PT Well [...] 06/20/2022 Assessment & Plan (06/16/2023 2:09 PM CHRONIC CARE NURSE): Chronic Uncontrolled Start crestro 5mg 2 days/week Goal: TC<200, LDL<100, TG<150 Assessment & Plan (03/21/2023 6:09 AM CHRONIC CARE NURSE): Chronic stable ffollow low cholesterol diet Goal: TC<200, LDL<100, TG<150 Assessment & Plan (06/28/2022 3:27 AM CHRONIC CARE NURSE): Chronic ffollow low cholesterol diet Goal: TC<200, LDL<100, TG<150 Pulmonary nodules 06/20/2022 Assessment & Plan (06/28/2022 3:29 AM CHRONIC CARE NURSE): Chronic Follow with ct chest Post-menopausal 06/20/2022 Periumbilical abdominal pain 06/20/2022 Assessment & Plan (06/28/2022 3:28 AM CHRONIC CARE NURSE): New Order labs Order CT abd/pelvis Refer [...] done. Assessment & Plan (06/28/2022 3:28 AM CHRONIC CARE NURSE): New Order labs Order CT abd/pelvis Refer to GI Abdominal bloating 06/20/2022 Assessment & Plan (10/03/2022 2:02 PM CDT): See above Assessment & Plan (08/30/2022 1:35 AM CDT): Chronic Likely IBS Will start bentyl Assessment & Plan (06/28/2022 3:28 AM CHRONIC CARE NURSE): New Order labs Order CT abd/pelvis Refer [...] cancer Assessment & Plan (06/28/2022 3:28 AM CHRONIC CARE NURSE): New Order labs Order CT abd/pelvis Refer to GI Hypertension, essential 06/20/2022 Assessment & Plan (08/05/2024 4:00 PM CDT): Chronic Stable Tolerating metoprolol 25 mg p.o. and lisinopril 10 mg p.o. both in the late afternoon. Goal: SBP<140, DBP<90 Follow up in September Assessment & Plan (07/08/2024 3:45 PM CHRONIC CARE NURSE): Chronic Not stable at home during patient's check Advised patient to take metoprolol to 25 mg daily and take in the morning and continue with the lisinopril 10 mg daily but take at bedtime. Patient to record blood pressure readings b.i.d. for the next 4 weeks Follow up in 4 weeks. Goal: SBP<140, DBP<90 Assessment & Plan (03/25/2024 2:47 PM CHRONIC CARE NURSE): Chronic Not stable Currently taking metoprolol 50 [...] DBP<90 Assessment & Plan (03/21/2023 6:10 AM CHRONIC CARE NURSE): Chronic Is stable Cont lopressor, lisinopril Goal: SBP<140, DBP<90 Assessment & Plan (06/28/2022 3:28 AM CHRONIC CARE NURSE): Chronic Stable Cont lopressor, lisinopril Goal: SBP<140, DBP<90 Anxiety 05/08/2017 Overview (02/08/2024): Description: stable on meds Chronic obstructive pulmonary disease 07/18/2015 Overview (02/08/2024): Followed by pulmonary Encounters Date Type Department Care Team Description 10/12/[address] [place] [phone] Shalonda Rico MD Medical Question/Miscellaneous 10/01/[address] [place] [phone] Shalonda Rico MD Additional Services Or Orders 09/30/2024 3:30 PM CDT Office Visit [address] [phone] Dora Lorenzana NP Compression fracture of T11 vertebra, initial encounter (HCC) (Primary Dx); Closed displaced intertrochanteric fracture of right femur with routine healing, subsequent encounter; Hypertension, essential 09/27/2024 1:45 PM CDT Office Visit [facility] Pulmonology [address] [place] [address] [address] [place] [phone] Andree Hunt MD Chronic obstructive pulmonary disease, unspecified COPD type (HCC) (Primary Dx); Chronic rhinitis; Cigarette nicotine dependence in remission; Pulmonary nodules 09/27/[address] [place] [phone] Shalonda Rico MD Additional Services Or Orders; Symptom Based Call 09/22/[address] [place] [address] Shalonda Rico MD Med Refill 09/14/2024 4:47 PM CDT - 09/14/2024 11:59 PM CDT Hospital Encounter [facility] [address] [place] [address] Pulmonary nodules Discharge Disposition: Discharge to home or self care 09/14/[address] [place] [address] Shalonda Rico MD Referral Request 08/11/[address] [phone] Shalonda Rico MD Ortho Referral- 2nd opinion- Declined 08/05/2024 3:00 PM CDT Office Visit [address] [phone] Dora Lorenzana NP Bursitis of right elbow, unspecified bursa (Primary Dx); Hypertension, essential; Vitamin D deficiency; Chronic obstructive pulmonary disease, unspecified COPD type (HCC); Mixed hyperlipidemia; Hyponatremia; Generalized anxiety disorder 08/04/2024 11:15 AM CDT Office Visit [facility] Hand Surgery [address] [place] [phone] Herminio Bruce MD Olecranon bursitis of right elbow (Primary Dx) 08/04/2024 11:14 AM CDT - 08/04/2024 11:59 PM CDT Hospital Encounter [facility] Di[facility] Imaging [address] [place] [address] Olecranon bursitis of right elbow Discharge Disposition: Discharge to home or self care 07/26/2024 Telephone [facility] Hand Surgery [address] [place] [phone] Herminio Bruce MD 07/26/2024 Telephone [facility] Hand Surgery [address] [place] [phone] Herminio Bruce MD from Last 3 Months Immunizations Immunization Administration Dates Next Due Influenza, Quadrivalent, Hig h Dose, Preservative Free, Intrr 02/20/2023 Influenza, Quadrivalent, Spl it, Preservative Free, Intramuscular 02/22/2021 Influenza, Trivalent, High D ose, Split, Preservative Free, Intramuscular 02/10/2024,04/29/2019 Influenza, Trivalent, IM (MDV) 02/09/2015 Influenza, Unspecified 02/09/2022,2020,04/29/2019,04/23,04/14/2018,03/19/2018,05/08/2017 ,09/29/2015,09/06/2015,08/16/2015 Saiv (J&J) SARS-CoV-2 Vaccination 07/23/2020 Pneumococcal Conjugate PCV 13 07/19/2015 Pneumococcal Polysaccharide PPV23 03/19/2018,,1950 Tdap 05/12/2013,10/26/2007 ZOSTER LIVE 09/29/2015,09/06/2015,08/16/2015 Surgical History Surgery Date Site/Laterality Comments MASTECTOMY 05/12/2015 - 05/11/2016 Bilateral for breast cancer HIP SURGERY 05/05/2024 Right TUBAL LIGATION BREAST SURGERY September 2015 Medical History Medical History Date Comments HTN (hypertension) Anxiety COPD (chronic obstructive pulmonary disease) (HC C) Breast cancer (HCC) Pulmonary nodules Arthritis Family History Medical History Relation Name Comments No Known Problems Daughter No Known Problems Father Alzheimer's disease Mother [place] Hypertension Mother [place] No Known Problems Sister Colon cancer Son 1 No Known Problems Son 2 Relation Name Status Comments Daughter Alive Father Mother [place] Sister Alive Son 1 Alive Son 2 Alive Social History Tobacco Use Types Packs/Day Years Used Date Smoking Tobacco: Former Cigarettes Q uit: 2020 Cigars Quit: 2020 Smokeless Tobacco: Never [facility] Utilities Answer Date Recorded In the [...] How often do you attend scientology or worship serv ices? Never 05/06/2024 Do you belong [...] any time in the past 12 [facility], were you homeless or living in a fdc (including now)? No 05/06/2024 Personal Safety Answer Date Recorded Have you ever been in or are you currently in a harmful physical or emotional relationship or is someone making you feel afraid or unsafe? Denies 05/04/2024 Comments Unknown Sex and Gender Information Value Date Recorded Sex Assigned at Not on file Legal Sex Female 8:18 AM CDT Gender Identity Female 05/04/2024 11:00 PM CHRONIC CARE NURSE Sexual Orientation Not on file Obstetrics History Last Filed Vital Signs Vital Sign Reading [...] 09/30/2024 3:19 PM CDT Plan of Treatment Health Maintenance Due Date Last Done Comments Hepatitis C Screening 1950 Hepatitis B Screening 1968 Zoster Vaccine (2 of 3) 11/24/2015 09/29/19 16, 09/06/2015, 08/16/2015 DTaP/Tdap/Td Vaccine (3 - Td or Tdap) 05/12/2023 05/12/2013, 10/26/2007 Covid-19 Vaccine (3 - 2023-2 5 season) 2024 04/12/2021, 07/23/2020 Depression Screening 09/14/2024 09/15/2023, 06/20/19 23 Well Visit 65+ 09/14/2024 09/15/2023 Lung Cancer Screening 12/13/2024 09/14/2024, 024 Osteoporosis Screening-Bone Density Scan 12/31/2024 12/31/2022, 05/15/2017 Fall Risk Assessment 05/11/2025 05/11/2024, 09/15/2023, 06/20/2022 Colon Cancer Screening-Colonoscopy 04/28/2028 04/28/2018 Pneumococcal vaccine 65+ Completed 018, 07/24/2016, 07/19/2015, Additional history exists Colon Cancer Screening-CT Colonography Discontinued 04/28/2018 Colon Cancer Screening-DNA Stool Discontinued 04/28/20 18 Colon Cancer Screening-FIT Discontinued 04/28/2018 Colon Cancer Screening-Sigmoidoscopy Discontinued 04/28/2018 Influenza Vaccine Completed 02/10/2024, , 02/09/2022, Additional history exists Breast Cancer Screening-Mammogram Discontinued Medical Devices Implanted Type Area Employee Wellness/Fitness Coordinator Device Identifier Shelf Expiration Date Model / Serial / Lot [employer]Rich[employer]/Ort ho Classic Chs 80mm 38.1mm 3 Hole Compression Hip 130d Standard [id number] - [id number] Implanted:Qty: 1 on 05/05/2024 by Mohsen Ojeda MD at [facility] Right: Hip [employer]/O rtho [id number] 09/16/2032 [id number] / / [id number] [employer]/Ort ho Ambi Chs 12.7mm 9mm 95mm 21mm Standard Lag Hip Screw Bone [id number] - [id number] Implanted:Qty: 1 on 05/05/2024 by Mohsen Ojeda MD at [facility] Right: Hip [employer]/O rtho [id number] 03/03/2028 [id number] / / [id number] [employer]/Ort ho Ambi Classic 4.5mm 8mm 36mm Self Tap Hip Cortical Screw Bone [id number] - [id number] Implanted:Qty: 1 on 05/05/2024 by Mohsen Ojeda MD at [facility] Right: Hip [employer]/O rtho [id number] / / [employer]/Rich[employer]/Ort ho Screw Bone Cortical St Full Thread Ambi Classic 4.5x38mm Ss [id number] - [id number] Implanted:Qty: 1 on 05/05/2024 by Mohsen Ojeda MD at [facility] Right: Hip [employer]/O rtho [id number] / / [employer]/Rich[employer]/Ort ho 4.5mm 8mm 40mm Self Tap Hip Cortical Screw Bone [id number] - [id number] Implanted:Qty: 1 on 05/05/2024 by Mohsen Ojeda MD at [facility] Right: Hip [employer]Rich[employer]/O rtho [id number] / / [employer]Rich[employer]/Ort ho Screw Bone Locking Cannulated Supracondylar Chs 3.5x19mm Stainless Steel [id number] - [id number] Implanted:Qty: 1 on 05/05/2024 by Mohsen Ojeda MD at [facility] Right: Hip [employer]/O rtho [id number] 09/24/2026 [id number] / / [id number] Procedures Procedure Name Priority Date/Time Associated Diagnosis [...] Latrell Rowley M.D. AG T: Report ID: [id number] Reading Location: [id number] Procedure Note Latrell Rowley MD - 09/24/2024 [...] Latrell Rowley M.D. AG T: Report ID: [id number] Reading Location: [id number] Andree Hunt MD IMG CT PROCEDURES Final [...] by Herminio Bruce TL T: Report ID: [id number] Reading Location: [place] [address] Procedure Note Herminio Bruce MD - 08/18/2024 [...] by Herminio Bruce TL T: Report ID: [id number] Reading Location: [id number] Herminio Bruce MD IMG XR PROCEDURES Final Result * Dexa Axial Skeleton Bone Density 1 or 2 Site (12/31/2022 1:01 PM CDT) Anatomical Region Laterality Modality Body N/A Mammography 01/01/2023 5:24 PM CDT Narrative 01/01/2023 5:25 PM CDT EXAM DESCRIPTION: DEXA AXIAL SKELETON BONE DENSITY 1 OR MORE SITES REASON FOR STUDY: 72 y/o year old F with given history of: post menopausal Employee Wellness/Fitness Coordinator/Model: [employer] A (S/N [id number]) CLINICAL INFORMATION: Current height: 66.4 inches Maximum [...] Mian Florentino M.D. MF: [email or web address] Report ID: [id number] Reading Location: [id number] Procedure Note Mian Florentino MD - 01/01/2023 EXAM DESCRIPTION: DEXA AXIAL SKELETON BONE DENSITY 1 OR MORE SITES REASON FOR STUDY: 72 y/o year old F with given history of: post menopausal Employee Wellness/Fitness Coordinator/Model: [employer] A (S/N [id number]) CLINICAL INFORMATION: Current height: 66.4 inches Maximum [...] Mian Florentino M.D. MF: SHUBHAM Report ID: [id number] Reading Location: [place] [address] Shalonda Rico MD IMG DXA PROCEDURES Final Result * Colonoscopy (04/28/2018) Anatomical Region Laterality Modality Other Historical Provider ENDOSCOPY PROCEDURES Betsy l Result from Last 3 Months or Most Recently Relevant to Health Maintenance Insurance [employer] MEDICARE GOLD [facility] A[employer] MEDICARE GOLD Advance Directives For more information, please contact: [phone] * LIMITED - No CPR (Latest Code [...] 9:25 PM 02/11/2024 6:32 PM Care Teams Comic Illustrator Relationship Specialty Start Date End Date Shalonda Rico MD PCP - General Family Medicine 11/18/23
== END 2024-10-24 13:31 | disposition home or self-care (01) ==
LOC: ANHIMG 13:44
PROVIDERS: PCP Family Medicine; Visit Provider Family Medicine
DX: S22.080A Wedge compression fracture of T11-T12 vertebra, initial encounter for closed fracture (principal); X58.XXXA Exposure to other specified factors, initial encounter; M47.896 Other spondylosis, lumbar region
CPT/HCPCS: 72148